=== PATIENT | female | born 1995 | race Caucasian/White ===

== ENCOUNTER 2017-01-17 07:10 | Emergency (ER) | payer BC ==
[2017-01-17 07:21] VITALS: BP 125/76
--- NOTE | 2017-01-17 07:42 | UC ---
Ear Complaint HPI - HPI Summary HPI Summary: 21 yo female with 2 week hx of nasal congestion/cough and bilateral ear pain and decreased hearing some sore throat - History of Current Complaint Chief Complaint: UCRespiratory Stated Complaint: SORE THROAT CONGESTION COUGH Time Seen by Provider: 01/17/17 07:36 Hx Obtained From: Patient Hx Last Menstrual Period: september, Onset/Duration: Gradual Onset, Lasting Weeks - 2 Severity Initially: Moderate Severity Currently: Moderate Pain Intensity: 4 Pain Scale Used: 0-10 Numeric Associated Signs/Symptoms: Positive: Hearing Loss, URI Symptoms Related History: Prior ENT Surgery - PETs x 4 - Allergies/Home Medications Allergies/Adverse Reactions: Allergies Allergy/AdvReac Type Severity Reaction Status Date / Time Montelukast [From [employer]] Allergy Itching Verified 01/17/17 07:21 environmental Allergy Eyes Uncoded 01/17/17 07:21 Itchy/Swollen/Red/Watery Home Medications: Home Medications Etonogestrel [Nexplanon] 68 mg IMPLANT ONCE 01/17/17 [History Confirmed 01/17/17 ] PMH/Surg Hx/FS Hx/Imm Hx Previously Healthy: Yes - Surgical History Surgical History: Yes Surgery Procedure, Year, and Place: Breast reduction 2009, ear tubes. adenoidectomy - Family History Known Family History: Negative: Cardiac Disease, Hypertension, Diabetes Family History: no cardio-vascular issues in family lineage - Social History Alcohol Use: Occasionally Substance Use Type: None Smoking Status (MU): Never Smoked Tobacco Review of Systems Constitutional: Negative Skin: Negative Eyes: Negative ENT: Sore Throat, Ear Ache, Nasal Discharge Respiratory: Negative Cardiovascular: Negative Gastrointestinal: Negative Genitourinary: Negative Motor: Negative Neurovascular: Negative Musculoskeletal: Negative Neurological: Negative Psychological: Negative Is Patient Immunocompromised?: No All Other Systems Reviewed And Are Negative: Yes Physical Exam Triage Information Reviewed: Yes Appearance: Well-Appearing, No Pain Distress, Well-Nourished Vital Signs: Initial Vital Signs Temp 98.5 F 01/17/17 07:17 Pulse 85 01/17/17 07:17 Resp 18 01/17/17 07:17 BP 125/76 01/17/17 07:17 Pulse Ox 100 01/17/17 07:17 Vital Signs Reviewed: Yes Eyes: Positive: Conjunctiva Clear ENT: Positive: Hearing grossly normal, Nasal congestion, Nasal drainage, TM bulging, TM dull, Uvula midline. Negative: TM red, Tonsillar swelling, Tonsillar exudate, Trismus, Muffled voice, Hoarse voice, Dental tenderness, Sinus tenderness Dental Exam: Normal Neck: Positive: Supple, Nontender, No Lymphadenopathy Respiratory: Positive: Lungs clear, Normal breath sounds, No respiratory distress, No accessory muscle use Cardiovascular: Positive: RRR, No Murmur, Pulses Normal Abdomen Description: Positive: Nontender, No Organomegaly, Soft Musculoskeletal: Positive: ROM Intact, No Edema Neurological: Positive: Alert, Muscle Tone Normal Psychological Exam: Normal Skin Exam: Normal Ear Complaint Course/Dx - Differential Dx/Diagnosis Provider Diagnoses: bilateral serous otitis media Discharge - Discharge Plan Condition: Stable Disposition: HOME Prescriptions: Amoxicillin PO (*) [Amoxicillin 875 MG (*)] 875 mg PO BID #20 tab Prednisone [Deltasone] 40 mg PO DAILY #10 tab Patient Education Materials: Serous Otitis Media (ED) Forms: *Work Release Referrals: Gia Crowell [Primary Care Provider] - 2 Weeks (if hearing not back to normal)
== END 2017-01-17 07:47 | disposition home or self-care (01) ==
LOC: UCCORT 07:10
DX: H65.93 Unspecified nonsuppurative otitis media, bilateral (principal)
CPT/HCPCS: 99212; G0463

== ENCOUNTER 2018-09-23 14:58 | Emergency (ER) | payer BC ==
[2018-09-23 15:41] VITALS: BP 147/89
--- NOTE | 2018-09-23 15:41 | UC ---
Abdominal Pain Female HPI - HPI Summary HPI Summary: Diarrhea 6-7 times yesterday...noen today. History of IBS although she states diarrhea yesterday smelled really bad. Also complains of a lot of nausea. On burth control but periods are always irregular. Sexually active. Pt has not been drinking a lot of fluids. No urinary symptoms, no fever or chills. She had an appt with her PCP 2 weeks ago and had blood work done which showed elevated liver enzymes and elevated thyroid results. She had a GB sonogram done because she always has some sort of abdominal pain with the IBS but she had started having sharp pains in the gall bladder area. The GB sonogram showed enlarged liver. She was told to have repeat lab work in about one month. Today, pain was a little sharper than usual as well as the diarrhea yesterday. No vomiting. - History of Current Complaint Chief Complaint: UCGI Stated Complaint: VOMITING/DIAREAH Time Seen by Provider: 09/23/18 15:41 Hx Obtained From: Patient Hx Last Menstrual Period: 08/20/18 ?: No Onset/Duration: Gradual Onset, Lasting Weeks, Still Present Timing: Intermittent Episodes Lasting: - Occasional sharp pains ovr gallbladder Severity Initially: Mild Severity Currently: Mild Pain Intensity: 0 Location: Diffuse, Discrete At: RUQ, Other - Location of ain changes with her IBS Radiates: No Character: Aching, Sharp Aggravating Factor(s): Nothing Alleviating Factor(s): Nothing Associated Signs and Symptoms: Positive: Nausea, Diarrhea Simlar Episode/Dx as:: IBS Allergies/Adverse Reactions: Allergies Allergy/AdvReac Type Severity Reaction Status Date / Time montelukast [From [facility]] Allergy Unknown Itching Verified 09/23/18 15:28 environmental Allergy Eyes Uncoded 09/23/18 15:28 Itchy/Swollen/Red/Watery Home Medications: Home Medications Cholecalciferol TAB* [Vitamin D TAB*] 1,000 unit PO DAILY 09/23/18 [History Confirmed 09/23/18] Ethinyl Estradiol/Drospirenone [Vijaya 28 Tablet] 1 each PO DAILY 09/23/18 [ History Confirmed 09/23/18] Loperamide CAP* [Imodium CAP*] 2 mg PO Q4H PRN 09/23/18 [History Confirmed 09/23] Multivitamin [Multivitamins] 1 cap PO 09/23/18 [History] PMH/Surg Hx/FS Hx/Imm Hx Previously Healthy: Yes GI/ History: Other - IBS, enlarged liver, elevated liver enzymes (not an ETOH drinker) - Surgical History Surgical History: Yes Surgery Procedure, Year, and Place: Breast reduction 2009, ear tubes. adenoidectomy - Family History Known Family History: Negative: Cardiac Disease, Hypertension, Diabetes Family History: no cardio-vascular issues in family lineage - Social History Alcohol Use: Occasionally Substance Use Type: None Smoking Status (MU): Never Smoked Tobacco Review of Systems All Other Systems Reviewed And Are Negative: Yes Gastrointestinal: Positive: Abdominal Pain, Diarrhea, Nausea - Today abdominal pain was sharper than normal over her RUQ Is Patient Immunocompromised?: No Physical Exam Triage Information Reviewed: Yes Appearance: Well-Appearing, No Pain Distress, Well-Nourished Vital Signs: Initial Vital Signs Temp 98.2 F 09/23/18 15:32 Pulse 87 09/23/18 15:32 Resp 15 09/23/18 15:32 BP 147/89 09/23/18 15:32 Pulse Ox 99 09/23/18 15:32 Vital Signs Reviewed: Yes Eyes: Positive: Conjunctiva Clear ENT: Positive: Hearing grossly normal, Pharynx normal, TMs normal, Uvula midline Neck: Positive: Supple, Nontender, No Lymphadenopathy Respiratory: Positive: Lungs clear, Normal breath sounds, No respiratory distress, No accessory muscle use Cardiovascular: Positive: RRR, No Murmur, Pulses Normal, Brisk Capillary Refill Abdomen Description: Positive: Nontender, No Organomegaly, Soft. Negative: CVA Tenderness (R), CVA Tenderness (L), Distended, Guarding, Hepatomegaly, McBurney' s Point Tenderness, Splenomegaly Bowel Sounds: Positive: Present Musculoskeletal Exam: Normal Neurological Exam: Normal Psychological Exam: Normal Skin Exam: Normal Abd Pain Female Course/Dx - Course Course Of Treatment: Pt given Tylenol 650 mg p.o. here, taking water. Rx for Zofran given for nausea. We had a long discussion about follow up for her thyroid concerns with an die repairer forging and follow up for her IBS concerns with a potato grader in [place] (who she has seen before) Go to the ER if worsening abdominal pain, fever, vomiting. - Differential Dx/Diagnosis Provider Diagnosis: Diarrhea, Chronic abdominal pain Discharge - Sign-Out/Discharge Documenting (check all that apply): Patient Departure All imaging exams completed and their final reports reviewed: No Studies - Discharge Plan Condition: Fair Disposition: HOME Prescriptions: Ondansetron TAB* [Zofran 4 MG Tab*] 4 mg PO Q6H PRN #15 tab PRN Reason: Nausea Patient Education Materials: Irritable Bowel Syndrome (DC) Referrals: Gia Crowell [Primary Care Provider] - Additional Instructions: Increase fluids. It is very important that you stay well hydrated. Go to the ER if you have worsening abdominal pain. Avoid spicy or fatty foods. Follow up with your primary care doctor in 1-2 days for a recheck if no improvement. - Billing Disposition and Condition Condition: FAIR Disposition: Home - Attestation Statements Provider Attestation: I was available for consult. This patient was seen by the JULIAN. Patient was not presented to, seen by or examined by me. Michael Mckeon MD
[2018-09-23] MEDS ORDERED: Acetaminophen TAB* 325 MG PO ONE (15:51)
== END 2018-09-23 16:32 | disposition home or self-care (01) ==
LOC: UCCORT 14:58
DX: R19.7 Diarrhea, unspecified (principal); G89.29 Other chronic pain; R10.11 Right upper quadrant pain
CPT/HCPCS: 81003; 84702; 99212; A9270-GY; G0463